=== PATIENT | male | born 1960 | race Caucasian/White ===

== ENCOUNTER → 2016-10-14 | Outpatient (CLI) | payer OTHER ==
[~2016-10-14] MED LIST: ASTEPRO137 MCG/0. NS; FLOVENT7.9 GM; HYDROCODON-ACE1 EAC1 PO; MULTI-DAY VITAM1 TAB PO; NABUMETONE PO; PROZAC40 MG PO
--- NOTE | ~2016-10-14 | CR63 ---
[facility] A Service of [facility] RADIOLOGY TEXT RESULTS PATIENT: SHIRIN HUFFMAN LOCATION: [facility] : 58 UNIT #: [id number] AGE: [address]: Len Viera MD SEX: M ORDER DR: [id number] [facility] [address] [place], [place] [address] [id number] O MR#: [id number] Acc #: [id number] NAME: SHIRIN HUFFMAN : 1960 SEX: M STUDY DATE/TIME: 10/14/2016 14:20 UNIT: [facility] ROOM: STUDY DESCRIPTION: CR Chest 2 View Attending Physician: Len Viera M.D. Referring Physician: Len Viera M.D. Ordering Physician: Len Viera M.D. Primary Care Physician: Shaheen Carreon M.D. MEDICAL IMAGING REPORT This report is preliminary unless electronic signature is present EXAM Chest 10/14/2016 HISTORY 55-year-old male patient preop clearance for right reverse total shoulder arthroplasty. Patient has non repairable rotator cuff. COMPARISON Chest 07/27/2012. FINDINGS Two-view chest demonstrates mild cardiac enlargement. Hilar structures and mediastinal contours are preserved. Lungs are clear. Chronic elevation right hemidiaphragm. IMPRESSION Mild cardiomegaly now present. Chronic elevation right hemidiaphragm. No acute chest finding Dictated by... Baljinder Knutson M.D. THIS IS AN ELECTRONICALLY VERIFIED REPORT Baljinder Knutson M.D. at 10/15/2016 7:14 AM AURE/jorge TD: 10/14/2016 22:37 JOB #: [id number] MEDICAL IMAGING REPORT Page 1 of 1 COPY
--- NOTE | ~2016-10-14 | EKG ---
PATIENT: SHIRIN HUFFMAN UNIT #: [id number] Ventricular Rate: 73 BPM Atrial Rate: 73 BPM P-R Interval: 162 ms QRS Duration: 74 ms Q-T Interval: 394 ms QTC Calculation(Bezet): 434 ms P [place]: 76 degrees Calculated R [place]: 8 degrees Calculated T [place]: 43 degrees Diagnosis Line: Normal sinus rhythm Diagnosis Line: Normal ECG Diagnosis Line: Diagnosis Line: Confirmed by NASRIN MORALES MD ([id number]) on Diagnosis Line: 10/16/2016 7:29:04 AM INTERPRETING MD: ANDREW ARGUELLES
[2016-10-14 14:22] LABS: HEMATOCRIT 45.7 % (38.0-50.0); HEMOGLOBIN 15.1 gm/dL (13.0-16.0); MEAN CELL VOLUME 89.2 FL (83-96); MEAN CORPUSCULAR HEMOGLOBIN 29.5 PG (28-34); MEAN PLATELET VOLUME 9.5 FL (6.5-11.5); RED BLOOD COUNT 5.12 X10e (3.90-5.60); RED CELL DISTRIBUTION WIDTH 13.7 % (11.0-15.5); WHITE BLOOD COUNT 8.2 X10e3 (4.0-10.5)
[2016-10-14 14:46] LABS: BUN/CREATININE RATIO 17.77; CALCIUM SERUM 9.7 mg/dL (8.4-10.2); CREATININE SERUM 0.9 mg/dL (0.6-1.4); GLOM FILT RATE Estimated 95.1 mL/min (>60); POTASSIUM 4.5 mmol/L (3.5-5.1)
== END | disposition home or self-care (01) ==
LOC: CLAB 13:49
PROVIDERS: Specialist
DX: Z01.818 Encounter for other preprocedural examination (principal); I51.7 Cardiomegaly; J98.6 Disorders of diaphragm
CPT/HCPCS: 36415; 71020; 80048; 85027; 93005